=== PATIENT | male | born 1990 | race Caucasian/White ===

== ENCOUNTER 2018-04-29 20:30 | Emergency (ER) | END 2018-04-29 23:53 | disposition home or self-care (01) ==

== ENCOUNTER 2018-12-25 01:48 | Emergency (ER) | payer MEDICAID ==
[~2018-12-25] VITALS: Ht 165.1 cm; Wt 109.2 kg
[~2018-12-25 01:48] MED LIST: ACET325T33 PO; BACI28.34 TOP; CEPH-443 PO; DOXY100T20 PO; IBUP-1542 PO; NAPR-985 PO
[2018-12-25 01:56] VITALS: BP 154/87; PULSE 85; RESP 18; Ht 165.1 cm; Wt 109.2 kg
[2018-12-25] MEDS ORDERED: ACYC800T5 PO (05:50)
[2018-12-25] MEDS ORDERED: MUPI22OI2 TOP (05:50)
[2018-12-25] MEDS ORDERED: IBUP-1542 PO (05:50)
--- NOTE | 2018-12-26 11:55 | ERD ---
ER Documentation Chief Complaint Chief Complaint pain wounds back of neck x 3 days HPI 28-year-old male presents with erythematous, crusted over, and burning rash to the back of his head which started 3 days ago. Patient denies any history of trauma but states that he has had chickenpox as a kid. Not taking any tr eatments. Pain is described as moderate and nonradiating. Denies any fevers, chills. Denies past medical history. Denies allergies. Denies medications. Denies surgeries. Denies alcohol, tobacco, drug use. Up to date on vaccines. ROS All systems reviewed and are negative except as per history of present illness. Medications Home Meds Active Scripts Ibuprofen* (Motrin*) 600 Mg Tab, 600 MG PO Q6H PRN for PAIN AND OR ELEVATED TEMP, #30 TAB Prov:LUCILLE GARAY 12/25/18 Acyclovir* (Zovirax*) 800 Mg Tablet, 800 MG PO 5 TIMES DAILY for shingles for 7 Days, TAB Prov:LUCILLE GARAY 12/25/18 Mupirocin* (Bactroban*) 2% -22 Gram Oint...g., 1 APPLIC TOP TID for infection for 10 Days, #1 TUBE Prov:LUCILLE GARAY 12/25/18 Ibuprofen* (Motrin*) 600 Mg Tab, 600 MG PO Q6, #30 TAB Prov:LUCILLE PATTERSON PA-C 04/29/18 Doxycycline Hyclate* (Doxycycline Hyclate*) 100 Mg Tablet.dr, 100 MG PO BID for 10 Days, TAB Prov:LUCILLE PATTERSON PA-C 04/29/18 Acetaminophen* (Tylenol*) 325 Mg Tablet, 2 TAB PO Q8 PRN for PAIN AND OR ELEVATED TEMP, #20 TAB Prov:ANEL POWELL DO 01/21/16 Naproxen* (Naprosyn*) 500 Mg Tablet, 500 MG PO BID PRN for PAIN AND/OR INFLAMMATION, #20 TAB Prov:ANEL POWELL DO 01/21/16 Bacitracin* (Bacitracin Zinc Oint*) 28.35 Gm Oint, 1 APPLIC TOP BID, #1 TUB APPLI TO Prov:SATHYA HERNÁNDEZ PA-C 01/19/16 Cephalexin* (Keflex*) 500 Mg Capsule, 500 MG PO TID, #21 CAP 0 Refills Prov:INESSA WILSON JOLEEN 01/17/16 Ibuprofen* (Motrin*) 600 Mg Tab, 600 MG PO Q6, #30 TAB 0 Refills Prov:INESSA WILSON JOLENE 01/17/16 Allergies Allergies: Coded Allergies: No Known Allergy (Unverified , 01/21/16) PMhx/Soc Medical and Surgical Hx: pt denies Medical Hx, pt denies Surgical Hx Hx Alcohol Use: Yes (socially ) Hx Substance Use: No Hx Tobacco Use: No FmHx Family History: No diabetes, No coronary disease, No other Physical Exam Vitals Vital Signs Date Temp Pulse Resp B/P (MAP) Pulse Ox O2 O2 Flow FiO2 Time Delivery Rate 12/25/18 97.1 85 18 154/87 98 01:56 (109) Physical Exam Const: No acute distress Head: Crusted over vesicular lesions on erythematous base noted in the patient's occipital area. There is no discharge, fluctuance, or edema noted. No signs of infection. TMs are pearly saunders bilaterally. otherwise atraumatic with no signs of fracture. Eyes: Normal Conjunctiva ENT: Normal External Ears, Nose and Mouth. TMs are pearly saunders bilaterally. There are no lesions on the nose or in the conjunctiva. Neck: Full range of motion. No meningismus. Resp: Clear to auscultation bilaterally Cardio: Regular rate and rhythm, no murmurs Neur: Awake and alert Psych: Normal Mood and Affect Procedures/MDM 28-year-old male presents with erythematous, crusted over, and burning rash to the back of his head which started 3 days ago. Patient denies any history of trauma but states that he has had chickenpox as a kid. Not taking any treatments. Pain is described as moderate and nonradiating. Given patient's history of having chickenpox as well as the appearance consistent with shingles, decision was made to treat with oral acyclovir as well as mupirocin to cover for any bacterial etiologies. Lesion was nonfluctuant so I have low suspicion for any kind of abscess. I have low suspicion for ocular or optic involvement. Patient describes only moderate pain so ibuprofen is sufficient. Patient told not to let any person contact the lesion as it is infectious. Patient discharged with strict ER precautions. Patient advised to follow up with PMD. All questions answered at discharge. Departure Diagnosis: Primary Impression: Shingles Herpes zoster complications: without complications Qualified Codes: B02.9 - Zoster without complications Condition: Stable Patient Instructions: Shingles (Herpes Zoster) Referrals: [facility] YOU HAVE RECEIVED A MEDICAL SCREENING EXAM AND THE RESULTS INDICATE THAT YOU DO NOT HAVE A CONDITION THAT REQUIRES URGENT TREATMENT IN THE EMERGENCY DEPARTMENT. FURTHER EVALUATION AND TREATMENT OF YOUR CONDITION CAN WAIT UNTIL YOU ARE SEEN IN YOUR DOCTORS OFFICE WITHIN THE NEXT 1-2 DAYS. IT IS YOUR RESPONSIBILITY TO MAKE AN APPOINTMENT FOR FOLOW-UP CARE. IF YOU HAVE A PRIMARY DOCTOR --you should call your primary doctor and schedule an appointment IF YOU DO NOT HAVE A PRIMARY DOCTOR YOU CAN CALL OUR PHYSICIAN REFERRAL HOTLINE AT IF YOU CAN NOT AFFORD TO SEE A PHYSICIAN YOU CAN CHOSE FROM THE FOLLOWING [facility] [address] [facility]. [facility] [address] [facility]. [facility] [address] [facility] [address] [facility] [address] [facility]. [facility] [address] Additional Instructions: FOLLOW UP WITH YOUR PRIMARY CARE PHYSICIAN TOMORROW.Return to this facility if you are not improving as expected. LUCILLE GARAY Dec 26, 2018 11:55
== END 2018-12-25 06:05 | disposition home or self-care (01) ==
LOC: FTE 01:48
DX: B02.9 Zoster without complications (principal)
CPT/HCPCS: 99283

== ENCOUNTER 2019-08-15 02:22 | Emergency (ER) | payer MEDICAID ==
[~2019-08-15] VITALS: Ht 165.1 cm; Wt 107.4 kg
[~2019-08-15 02:22] MED LIST changes: +ACYC800T5 PO; +DOXY-214 PO; -DOXY100T20 PO; +MUPI22OI2 TOP; +SULF1TAB31 PO
[2019-08-15 02:25] VITALS: BP 179/95; PULSE 95; RESP 20; Ht 165.1 cm; Wt 107.4 kg
== END 2019-08-15 05:37 | disposition home or self-care (01) ==
LOC: FTE 02:22
DX: L02.11 Cutaneous abscess of neck (principal)
CPT/HCPCS: 99283